=== PATIENT | female | born 1965 | race Caucasian/White ===

== ENCOUNTER → 2023-09-27 06:47 | Outpatient (REF) | payer BC, SELFPAY | LOC: RAD 06:47 | PROVIDERS: ATTENDING PHYSICIAN Internal Medicine Gastroenterology; FAMILY PHYSICIAN Emergency Medicine | DX: R79.89 Other specified abnormal findings of blood chemistry (principal) | CPT/HCPCS: 76700 ==

== ENCOUNTER → 2023-12-03 07:46 | Outpatient (REF) | payer BC, SELFPAY | LOC: MRI 3T 07:46 | PROVIDERS: ATTENDING PHYSICIAN Internal Medicine Gastroenterology; FAMILY PHYSICIAN Emergency Medicine | DX: R74.8 Abnormal levels of other serum enzymes (principal) | CPT/HCPCS: 74183; A9575 ==

== ENCOUNTER → 2023-12-18 07:35 | Outpatient (REF) | payer BC, SELFPAY | LOC: WDC 07:35 | PROVIDERS: ATTENDING PHYSICIAN Emergency Medicine | DX: Z12.31 Encounter for screening mammogram for malignant neoplasm of breast (principal) | CPT/HCPCS: 77063; 77067 ==

== ENCOUNTER → 2024-02-04 07:53 | Outpatient (REF) | payer BC, SELFPAY | LOC: RAD 07:53 | PROVIDERS: ATTENDING PHYSICIAN Emergency Medicine | DX: I77.810 Thoracic aortic ectasia (principal); R91.1 Solitary pulmonary nodule | CPT/HCPCS: 71250 ==

== ENCOUNTER → 2024-06-26 06:21 | Day surgery (SDC) | payer BC, SELFPAY | LOC: GI 06:21 | PROVIDERS: ATTENDING PHYSICIAN Internal Medicine Gastroenterology; FAMILY PHYSICIAN Emergency Medicine | DX: Z12.11 Encounter for screening for malignant neoplasm of colon (principal); K51.50 Left sided colitis without complications; K64.9 Unspecified hemorrhoids | CPT/HCPCS: 45380; 88305 ==

== ENCOUNTER 2024-09-03 11:50 | Emergency (ER) | payer BC, SELFPAY ==
[2024-09-03 12:02] VITALS: BP 140/85
[2024-09-03 12:18] VITALS: BMI 20.3
--- NOTE | 2024-09-03 12:36 | ED.GENMED ---
History of Present Illness
General
Chief Complaint: Musculo-Skeletal Complaint
Source: patient
Exam Limitations: none
Time Seen by Provider: 09/03/24 12:29
History of Present Illness
History of Present Illness:
Patient's finger got caught in the leash of her dog. Mild pain fifth finger. No other injury or complaint
Past History
Past History
ED Past Medical History: Other ()
Family History
Family History: Other (reviewed and non-contributory)
Review of Systems
Review of Systems
All Other Systems: Not applicable
Phy Exam
Physical Exam
Physical Exam:
General: Nontoxic appearing in no distress
Skin: Warm and dry, no rash
Neuro: Alert, nontoxic, grossly nonfocal
Psychiatric: Good eye contact and appropriate
Musculoskeletal: Mild swelling and mild flexion at the PIP joint of the left fifth finger. Wrist normal. Hand normal. Negative fifth metacarpal. MCP joints all normal. Able to extend fully at the proximal phalanx of the fifth digit. Able to
flex. However with careful repositioning of the subluxed joint it does not stay in this position.
Course
Orders/Labs/Results
Orders:
Orders
09/03/24 12:04
Finger(s)/Thumb 2 View Lt [CR Finger(s)/thumb Min 2 Vw Lt] Urgent
Comment:
Reason For Exam: left pinky pain
Indicate Which Finger:: Little Finger
09/03/24 12:35
Aluminium Finger Splint Left ONCE
Mamadou Tape Left-Treatment ONCE
Vital Signs
Initial and Last Documented VS:
Initial Vital Signs
Temp Pulse Resp BP Pulse Ox
97.6 F 74 16 140/85 98
09/03/24 12:02 09/03/24 12:02 09/03/24 12:02 09/03/24 12:02 09/03/24 12:02
Last Documented Vital Signs
Temp Pulse Resp BP Pulse Ox
97.6 F 74 16 140/85 98
09/03/24 12:02 09/03/24 12:02 09/03/24 12:02 09/03/24 12:02 09/03/24 12:02
*Radiology
Radiology exam reviewed: radiology read reviewed (Ulnar/palmar subluxation middle phalanx PIP joint capsular collateral ligament injury)
*Pulse Oximetry
Patient hypoxic: no
*Critical Care Note
Total Time (30-74mins, 75-104mins- exclusive of procedures): Not Applicable
ED Attending Note
-
Portions of this chart may have been created with voice recognition software.� Occasional wrong word or��sound alike� substitutions may have occurred due to the inherent limitations of voice recognition software.
Discharge Plan
Departure
Patient Disposition: Home (Routine Discharge)
Date of Disposition: 09/03/24
Time of Disposition: 12:38
Patient with high blood pressure during this ER visit?: Yes
Discharge Problem:
Capsular/ligamentous injury left fifth P, Left fifth PIP joint
Instructions: BLOOD PRESSURE
Prescriptions:
No Action
celecoxib 200 MG capsule
200 mg PO DAILY
gabapentin 400 MG capsule
400 mg PO TID
azathioprine 50 MG tablet
150 mg PO DAILY
duloxetine 60 MG capsule,delayed release(DR/EC)
60 mg PO DAILY
fluticasone propion-salmeterol [Advair HFA] 1 PUFF HFA aerosol inhaler
2 puff inhalation BID
adalimumab [Humira(CF) Pen [id number]] 80 MG/0.8 ML pen injector kit
40 mg SC Q2W
amoxicillin 500 MG capsule
1,000 mg PO Q8H 4 Days Qty: 11 0RF
diazepam 5 mg tablet
5 mg PO TID PRN (Reason: muscle spasm) Qty: 8 0RF
Referrals:
Jayde Mantilla MD [Family Provider] -
Fredis Betancourt MD [Active] - Follow up in 2-3 days
Activity Restrictions/Additional Instructions:
Use the splint until seen by orthopedics
Elevate, ice for swelling
Advil or Motrin for pain
Call orthopedics in the morning for close follow-up.
The orthopedic listed has a partner Dr. Stapleton who is a hand specialist
There is a significant capsular/ligamentous injury to the left fifth finger and this should be followed up by hand specialist
Interventions
Interventions:
*Risk Screen - Suicide Last Done: 09/03/24 12:02
*General Assessment Last Done: 09/03/24 12:18
*Neglect/Abuse Screening Last Done: 09/03/24 12:02
ED- Fall Risk Assessment Last Done: 09/03/24 12:19
*ED COVID-19 Vaccine History Last Done: 09/03/24 12:18
ED-Musculoskeletal Assessment Last Done: 09/03/24 12:18
Discharge Date and Time
Print Language: [id number]
== END 2024-09-03 12:54 | disposition home or self-care (01) ==
LOC: EMR 11:50
PROVIDERS: EMERGENCY PHYSICIAN Emergency Medicine; FAMILY PHYSICIAN Emergency Medicine
DX: S63.237A Subluxation of proximal interphalangeal joint of left little finger, initial encounter (principal); W23.0XXA Caught, crushed, jammed, or pinched between moving objects, initial encounter; R03.0 Elevated blood-pressure reading, without diagnosis of hypertension; K51.90 Ulcerative colitis, unspecified, without complications
CPT/HCPCS: 99283; 29130; 73140

== ENCOUNTER → 2025-01-17 10:41 | Outpatient (REF) | payer OTHER, SELFPAY ==
[2025-01-18 14:14] LABS: Mumps Virus IgG Positive; Varicella Zoster IgG (VZV) Positive
== END ==
LOC: REG 10:41
PROVIDERS: FAMILY PHYSICIAN Nurse Practitioner Family
DX: Z23 Encounter for immunization (principal)
CPT/HCPCS: 36415; 86480; 86735; 86762; 86765; 86787

== ENCOUNTER → 2025-05-03 17:23 | Outpatient (REF) | payer BC, SELFPAY | LOC: PAVMRI 17:23 | PROVIDERS: ATTENDING PHYSICIAN Orthopaedic Surgery Hand Surgery; FAMILY PHYSICIAN Family Medicine | DX: M79.642 Pain in left hand (principal) | CPT/HCPCS: 73218 ==

== ENCOUNTER 2025-06-19 07:02 | Day surgery (SDC) | payer BC, SELFPAY ==
[2025-06-11 09:39] LABS: Blood Urea Nitrogen 18 mg/dl (7-17); Calcium 9.2 mg/dl (8.4-10.2); Carbon Dioxide 33 mmol/L (22-30); Chloride 98 mmol/L (98-107); Glucose 76 mg/dl (70-99); Potassium 4.3 mmol/L (3.5-5.1); Sodium 136 mmol/L (135-145); eGFR > 60.00
[2025-06-11 13:56] VITALS: BMI 19.7
[2025-06-19] VITALS (10 sets, daily range): BP systolic 88–111; BP diastolic 51–65; BMI 19.7
[2025-06-19] MEDS: NORMOSOL-R/PLASMALYTE-A 1000 IV (09:50)
[2025-06-19] MEDS: TYLENOL 1000 MG PO (09:50)
[2025-06-19] MEDS: CELEBREX 200 MG PO (09:50)
== END 2025-06-19 13:55 | disposition home or self-care (01) ==
LOC: SDS 07:02
PROVIDERS: ATTENDING PHYSICIAN Orthopaedic Surgery Hand Surgery; FAMILY PHYSICIAN Family Medicine
DX: S63.289A Dislocation of proximal interphalangeal joint of unspecified finger, initial encounter (principal); X58.XXXA Exposure to other specified factors, initial encounter; M20.022 Boutonniere deformity of left finger(s)
CPT/HCPCS: 26426; 26525; 80048; 93005